=== PATIENT | female | born 1975 | race Caucasian/White ===

== ENCOUNTER 2016-10-30 19:00 | Emergency (ER) | payer BC ==
--- NOTE | 2016-11-05 02:33 | ER ---
ADMIT: 10/30/2016 RM/LOC: [facility] MR#: [id number] [facility] [place], [place] [id number] [address] [place], [place] [id number] Emergency Room Report SEX: F AGE: 41 : 1975 DATE: 10/30/2016 ADDENDUM: CHIEF COMPLAINT: Abdominal pain. HISTORY OF PRESENT ILLNESS: This is a 41-year-old female, who had this abdominal pain for about 6 days. She has had some nausea. She has seen 2 providers for this. She did have some blood in her urine, so they placed her on an antibiotic. She followed Alla Patel just on Thursday. She repeated some blood work, everything was negative at that time. I did a H. pylori, test serum, CBC, CMP, lipase, and ultrasound of the gallbladder. The only positive finding is her white count of 11.4, otherwise negative test, nonreactive H. pylori, CMP and lipase are normal, and gallbladder is normal. CLINICAL IMPRESSION: Abdominal pain with nausea. DISPOSITION: Okay to go home. I am going to have her follow up with Alla Patel if symptoms continue. BON Gil / Rodrigue Hobson MD / zaid JOB #: [id number] CC: Rodrigue Hobson MD, Attending Physician Alla Patel APRN, [employer], Family Physician
== END 2016-10-30 21:00 | disposition home or self-care (01) ==
LOC: ER 19:00
DX: R10.9 Unspecified abdominal pain (principal); R11.0 Nausea; Z88.0 Allergy status to penicillin; Z79.899 Other long term (current) drug therapy